=== PATIENT | female | born 1980 | race American Indian/Alaskan Native ===

== ENCOUNTER 2018-09-18 23:14 | Emergency (ER) | payer OTHER ==
[2018-09-19] MEDS ORDERED: THERMAZENE 50 GRAM TP ONE (02:05)
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
--- NOTE | 2018-09-19 02:46 | XRay Report ---
PROCEDURE: RIGHT FOREARM TECHNIQUE: RIGHT forearm radiographs, AP and lateral views. CPT 38580 HISTORY: Pain COMPARISONS: None . FINDINGS: Fracture (s) and/or Dislocation(s): None . Joint space(s): Normal . Soft tissues: Normal . Bone mineralization: Normal . Foreign bodies: None . IMPRESSION: Normal Examination . This document is electronically signed by Kev Han MD., September 19 2018 02:44:20 AM ET
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
[2018-09-19 04:11] VITALS: BP 135/82
== END 2018-09-19 04:11 | disposition home or self-care (01) ==
LOC: ED 23:14
DX: S93.401A Sprain of unspecified ligament of right ankle, initial encounter (principal); S96.911A Strain of unspecified muscle and tendon at ankle and foot level, right foot, initial encounter; S46.812A Strain of other muscles, fascia and tendons at shoulder and upper arm level, left arm, initial encounter; T22.011A Burn of unspecified degree of right forearm, initial encounter; T31.0 Burns involving less than 10% of body surface; M54.2 Cervicalgia; I10 Essential (primary) hypertension; Z98.890 Other specified postprocedural states; V49.49XA Driver injured in collision with other motor vehicles in traffic accident, initial encounter; Y93.89 Activity, other specified; Y92.410 Unspecified street and highway as the place of occurrence of the external cause; Y99.8 Other external cause status